=== PATIENT | male | born 1955 | race Caucasian/White ===

== ENCOUNTER 2018-03-06 12:54 | Emergency (ER) | payer MEDICARE, MEDICAID ==
[2018-03-06 12:54] VITALS: BMI 30.7
[2018-03-06 13:01] VITALS: BP 131/84; PULSE 75; RESP 19; TEMP 98.7; O2SAT 95
[2018-03-06 14:16] LABS: HEMOGLOBIN 14.7 g/dL (12.0-18.0); MEAN CORPUSCULAR HEMOGLOBIN 31.5 pg (27.0-31.0); MEAN CORPUSCULAR HGB CONC 35.4 g/dL (33.0-37.0); MEAN PLATELET VOLUME 7.8 fL (7.2-11.7); RBC 4.68 Mil/uL (4.40-5.90); RED CELL DISTRIBUTION WIDTH 13.1 % (11.5-14.5); WHITE BLOOD COUNT 7.1 K/uL (4.8-10.8)
--- NOTE | 2018-03-06 14:37 | C.PDOC ---
History Of Present Illness 63 y/o male with niddm, not on blood thinners, c/o intermittent right sided nose bleeding for last 2 weeks. pt sts can happen while awake or sleeping and sts take a long time to stop, pt here today because he had bleeding in nose 2 times today. no active bleeding at this time. no trauma to nose. pt reports prior nose bleed, seen in ED in 2013, per old recodrs for similar situation, had cautery done in left nare, no ent f/u.. Denies fever, nausea, vomiting, and any other associated symptoms. Time Seen by Provider: 03/06/18 13:28 Chief Complaint (Nursing): ENT Problem History Per: Patient History/Exam Limitations: None Onset/Duration Of Symptoms: Days Current Symptoms Are (Timing): Still Present Past Medical History Reviewed: Historical Data, Nursing Documentation, Vital Signs Vital Signs: Last Vital Signs Temp 98.7 F 03/06/18 12:57 Pulse 75 03/06/18 12:57 Resp 19 03/06/18 12:57 BP 131/84 03/06/18 12:57 Pulse Ox 95 03/06/18 12:57 - Medical History PMH: Depression, Diabetes, HTN, Hypercholesterolemia, Hyperlipidemia, Seizures, Sleep Apnea (on CPap machine at HS) Denies: Chronic Kidney Disease - [facility] Procedures CAUTERY TO STOP EPISTAX (03/16/13) ENDOSC POLYPECTOMY OF LG INTEST (02/05/14) Family History: States: Unknown Family Hx - Social History Hx Tobacco Use: No Hx Alcohol Use: No Hx Substance Use: No - Immunization History Hx Tetanus Toxoid Vaccination: No Hx Influenza Vaccination: Yes Hx Pneumococcal Vaccination: No Review Of Systems Constitutional: Negative for: Fever, Chills ENT: Positive for: Other (intermittent right sided nose bleeding. ) Gastrointestinal: Negative for: Nausea, Vomiting Physical Exam - Physical Exam Appears: Well, Non-toxic, No Acute Distress Skin: Warm, Dry Head: Atraumatic, Normacephalic Eye(s): bilateral: PERRL Nose: Other (punctate area of bleeding noted on the right nasal septum and swelling. no active bleeding. ) Throat: Normal, No Erythema Neck: Normal ROM, Supple Chest: Symmetrical Cardiovascular: Rhythm Regular, No Murmur Respiratory: Other (no acute respiratory distress.) Back: Normal Inspection, No Vertebral Tenderness, No Paraspinal Tenderness Extremity: Normal ROM (x4) Neurological/Psych: Oriented x3, Normal Speech, Normal Motor, Normal Sensation, Normal Reflexes Gait: Steady ED Course And Treatment - Laboratory Results Result Diagrams: 03/06/18 14:12 O2 Sat by Pulse Oximetry: 95 (RA) Pulse Ox Interpretation: Normal Progress Note: Progress: Blood sent. Patient advised to follow up with ENT. Medical Decision Making Medical Decision Making: pt with intermittent nose bleeds right sdie x 1-=2 weeks,m no actibve bleeding. normal platelets and normal coags, d/c home with outpatient f/u Disposition Counseled Patient/Family Regarding: Diagnosis, Need For Followup - Disposition Referrals: Aries Rodriguez MD [Staff Provider] - Disposition: HOME/ ROUTINE Disposition Time: 16:10 Condition: GOOD Additional Instructions: Por favor, aplique doroteo presin directa y firme en el extremo de la nariz meme 10 minutos si el sangrado comienza nuevamente al inclinar la jazmine hacia adelante para evitar tragar naz. Despus de 10 minutos, compruebe si el sa ngrado se spivey detenido. Si no, intntelo de nuevo por otros 5-10 minutos, y si el sangrado persiste, regrese a la ellyn de emergencias. Roma un seguimiento con el doctor lynsey Manzo de la arnieta. Llame para doroteo jessica. No coja la nariz, no ponga nada en la nariz. Please apply firm direct pressure to end of nose for 10 minutes if bleeding starts again while bending head forward to avoid swallowing blood. After 10 mintues, check if bleeding has stopped. If not, try again for another 5-10 minutes, and if bleeding persists, return to ER. Follow up with Dr Rodriguez- ear nose throat doctor. Call for an apointment. Do not pick nose, do not stick anything up nose. Instructions: Nosebleeds (DC) Forms: [facility] (Maltese), Gen Discharge Inst Maltese - Clinical Impression Clinical Impression: Epistaxis - PA / OWNER / Resident Statement / has reviewed & agrees with the documentation as recorded. - Scribe Statement The provider has reviewed the documentation as recorded by the Scribe (Kitty Rivera) All medical record entries made by the Scribe were at my direction and personally dictated by me. I have reviewed the chart and agree that the record accurately reflects my personal performance of the history, physical exam, medic al decision making, and the department course for this patient. I have also personally directed, reviewed, and agree with the discharge instructions and disposition.
[2018-03-06 15:44] LABS: INR 1.1; PROTHROMBIN TIME 12.2 SECONDS (9.7-12.2)
== END 2018-03-06 16:29 | disposition home or self-care (01) ==
LOC: C.ER 12:54
DX: R04.0 Epistaxis (principal)

== ENCOUNTER 2018-09-05 09:38 | Observation (INO) | payer MEDICARE, MEDICAID ==
[2018-09-05 09:38] VITALS: BMI 30.7
[2018-09-05 11:18] LABS: BASO # 0.1 K/uL (0.0-0.2); BASO % 0.8 % (0.0-2.0); EOS # 0.3 K/uL (0.0-0.7); EOS % 2.7 % (0.0-4.0); HEMOGLOBIN 15.5 g/dL (12.0-18.0); LYMPH # 1.5 K/uL (1.0-4.3); LYMPH % 13.9 % (20.0-40.0); MEAN CELL VOLUME 90.5 fL (80.0-94.0); MEAN CORPUSCULAR HEMOGLOBIN 31.5 pg (27.0-31.0); MEAN CORPUSCULAR HGB CONC 34.8 g/dL (33.0-37.0); MEAN PLATELET VOLUME 8.3 fL (7.2-11.7); MONO % 9.6 % (0.0-10.0); NEUT # 7.9 K/uL (1.8-7.0); RBC 4.93 Mil/uL (4.40-5.90); RED CELL DISTRIBUTION WIDTH 13.2 % (11.5-14.5)
[2018-09-05 11:20] LABS: WHITE BLOOD COUNT 10.9 K/uL (4.8-10.8)
[2018-09-05] MEDS ORDERED: Dexamethasone 4 mg/1 ml IVP STA (11:31)
[2018-09-05] MEDS ORDERED: Clindamycin 450 MG in Sodium Chloride 0.9% 50 ML IVPB STA (11:32)
[2018-09-05 11:35] LABS: ALBUMIN 4.5 g/dL (3.5-5.0); BLOOD UREA NITROGEN 11 mg/dL (9-20); CALCIUM 9.2 mg/dl (8.6-10.4); GFR NON-AFRICAN AMERICAN > 60
[2018-09-05 11:36] LABS: ALB/GLOB RATIO 1.3 (1.0-2.1); ALT/SGPT 26 U/L (21-72); AST/SGOT 38 U/L (17-59)
[2018-09-05] MEDS ORDERED: Iodixanol 320 MG/ML 100 ML BOTTLE IV ONE (12:14)
--- NOTE | 2018-09-05 13:39 | CT ---
Date of service: 09/05/2018 PROCEDURE: CT NECK WITH CONTRAST HISTORY: chin infection, swelling of neck and submandibular COMPARISON: None available. TECHNIQUE: CT of the neck with intravenous contrast. Coronal and sagittal reformats generated. Intravenous contrast dose: 100 mL Visipaque 320 Radiation dose: Total exam DLP = 470.45 mGy-cm. This CT exam was performed using one or more of the following dose reduction techniques: Automated exposure control, adjustment of the mA and/or kV according to patient size, and/or use of iterative reconstruction technique. FINDINGS: There is skin thickening, subcutaneous edema and abnormal subcutaneous soft tissue with inflammatory changes overlying the midline and right mandible. There is no evidence for abscess or drainable fluid collection. There is also reactive edema and mild asymmetric enlargement of the right submandibular gland. There is also mild reactive thickening of the right platysma. NASOPHARYNX: Within normal limits. SUPRAHYOID NECK: No mass or abnormal enhancement in the oropharynx, oral cavity, parapharyngeal space and retropharyngeal space. INFRAHYOID NECK: No mass or abnormal enhancement in the larynx, hypopharynx, and supraglottic space. Vocal cords intact. MASS: None. GLANDS: Parotid and left submandibular glands unremarkable. Normal size thyroid gland, without nodule. LYMPH NODES: There is mild asymmetric prominence of the right submandibular lymph nodes, likely reactive. No pathologic cervical chain lymphadenopathy. CERVICAL SPINE: No fracture or focal lesion. Mild multilevel degenerative disc disease. VASCULAR STRUCTURES: There is normal intravascular enhancement. OTHER FINDINGS: There is a retention cyst/polyp in the right maxillary sinus and mild mucosal thickening in the left maxillary sinus. IMPRESSION: 1. Findings are consistent with right facial cellulitis overlying the midline and right mandible. No abscess or drainable fluid collection. 2. Reactive enlargement of the right submandibular gland, reactive thickening of the right platysma and reactive right submandibular lymph node prominence.
--- NOTE | 2018-09-05 14:12 | C.PDOC ---
History Of Present Illness The patient is a 63 year old male who states he had a pimple to his chin, which he tried to pop around 3-4 days ago. Patient presents to the ED for evaluation because the area has now become increasingly swollen over the past couple days. Patient reports swelling to his chin that travels to the both sides of his face and to his submandibular area. Patient also reports some trouble with swallowing. He denies fever, chills, shortness of breath, or known trauma/injury to the area. Time Seen by Provider: 09/05/18 11:10 Chief Complaint (Nursing): Abnormal Skin Integrity History Per: Patient History/Exam Limitations: no limitations Onset/Duration Of Symptoms: Hrs Current Symptoms Are (Timing): Still Present Quality Of Symptoms: Swollen Past Medical History Reviewed: Historical Data, Nursing Documentation, Vital Signs Vital Signs: Last Vital Signs Temp 98.4 F 09/05/18 09:46 Pulse 85 09/05/18 09:46 Resp 18 09/05/18 09:46 BP 132/79 09/05/18 09:46 Pulse Ox 97 09/05/18 09:46 - Medical History PMH: Depression, Diabetes, HTN, Hypercholesterolemia, Hyperlipidemia, Seizures, Sleep Apnea (on CPap machine at HS) Denies: Chronic Kidney Disease Surgical History: No Surg Hx - [facility] Procedures CAUTERY TO STOP EPISTAX (03/16/13) ENDOSC POLYPECTOMY OF LG INTEST (02/05/14) Family History: States: Unknown Family Hx - Social History Hx Tobacco Use: No Hx Alcohol Use: Yes Hx Substance Use: No - Immunization History Hx Tetanus Toxoid Vaccination: No Hx Influenza Vaccination: No Hx Pneumococcal Vaccination: No Review Of Systems Constitutional: Negative for: Fever, Chills Respiratory: Negative for: Shortness of Breath Skin: Positive for: Other (swelling to chin, both sides of face, and difficulty swallowing ) Physical Exam - Physical Exam Appears: Non-toxic, No Acute Distress Skin: Normal Color, Warm, Dry Head: Swelling (chin, bilateral facial, submanidibular areas ) Eye(s): bilateral: Normal Inspection Oral Mucosa: Moist Throat: Normal, No Erythema, No Exudate, No Drooling, Other (swallowing secretions, hot potato voice noted ) Neck: Supple Chest: Symmetrical, No Deformity, No Tenderness Cardiovascular: Rhythm Regular, No Murmur Respiratory: Normal Breath Sounds, No Rales, No Rhonchi, No Wheezing Extremity: Normal ROM, Capillary Refill (less than 2 seconds ) Neurological/Psych: Oriented x3 ED Course And Treatment - Laboratory Results Result Diagrams: 09/05/18 11:05 09/05/18 11:05 Lab Results: Total Bilirubin 1.9 mg/dL (0.2-1.3) H 09/05/18 11:05 AST 38 U/L (17-59) 09/05/18 11:05 ALT 26 U/L (21-72) 09/05/18 11:05 Alkaline Phosphatase 125 U/L (38-126) 09/05/18 11:05 Total Protein 8.0 g/dL (6.3-8.3) 09/05/18 11:05 Albumin 4.5 g/dL (3.5-5.0) 09/05/18 11:05 Globulin 3.4 gm/dL (2.2-3.9) 09/05/18 11:05 Albumin/Globulin Ratio 1.3 (1.0-2.1) 09/05/18 11:05 O2 Sat by Pulse Oximetry: 97 (on RA) Pulse Ox Interpretation: Normal - CT Scan/US CT Neck Soft Tissue Other Rad Studies (CT/US): Read By Radiologist, Radiology Report Reviewed CT/US Interpretation: This report is currently processing and HAS NOT BEEN OFFICIALLY SIGNED BY THE PHYSICIAN - ESTIMATED TIME OF APPROVAL IS 09/05/2018 15:24. ADDENDUM: This addendum is in regards to additional findings in the thyroid gland. There is an apparent multinodular thyroid gland. Correlation with dedicated thyroid ultrasound on a non emergent is recommended for complete evaluation of the thyroid gland. The final report is tagged to the PA review folder. [ Addendum Report Added by Eli Bhat MD at 09/05/2018 15:19:08 ]. Date of service: 09/05/2018. PROCEDURE: CT NECK WITH CONTRAST. HISTORY: chin infection, swelling of neck and submandibular. COMPARISON: None available. TECHNIQUE: CT of the neck with intravenous contrast. Coronal and sagittal reformats generated. Intravenous contrast dose: 100 mL Visipaque 320. Radiation dose: Total exam DLP = 470.45 mGy-cm. This CT exam was performed using one or more of the following dose reduction techniques: Automated exposure control, adjustment of the mA and/or kV according to patient size, and/or use of iterative reconstruction technique. FINDINGS: There is skin thickening, subcutaneous edema and abnormal subcutaneous soft tissue with inflammatory changes overlying the midline and right mandible. There is no evidence for abscess or drainable fluid collection. There is also reactive edema and mild asymmetric enlargement of the right submandibular gland. There is also mild reactive thickening of the right platysma. NASOPHARYNX: Within normal limits. SUPRAHYOID NECK: No mass or abnormal enhancement in the oropharynx, oral cavity, parapharyngeal space and retropharyngeal space. INFRAHYOID NECK: No mass or abnormal enhancement in the larynx, hypopharynx, and supraglottic space. Vocal cords intact. MASS: None. GLANDS: Parotid and left submandibular glands unremarkable. Normal size thyroid gland, without nodule. LYMPH NODES: There is mild asymmetric prominence of the right submandibular lymph nodes, likely reactive. No pathologic cervical chain lymphadenopathy. CERVICAL SPINE: No fracture or focal lesion. Mild multilevel degenerative disc disease. VASCULAR STRUCTURES: There is normal intravascular enhancement. OTHER FINDINGS: There is a retention cyst/polyp in the right maxillary sinus and mild mucosal thickening in the left maxillary sinus. IMPRESSION: 1. Findings are consistent with right facial cellulitis overlying the midline and right mandible. No abscess or drainable fluid collection. 2. Reactive enlargement of the right submandibular gland, reactive thickening of the right platysma and reactive right submandibular lymph node prominence. Progress Note: Bloodwork ordered and reviewed. CT Neck Soft Tissue ordered and reviewed. Cleocin IVP, Decadron IVP, Toradol IM, and Toradol IVP given. Disposition - Disposition Disposition: HOSPITALIZED Disposition Time: 14:12 Condition: FAIR - Clinical Impression Clinical Impression: Cellulitis, face, Cellulitis, neck, Swallowing difficulty - PA / HEEL SCORER / Resident Statement MD/DO has reviewed & agrees with the documentation as recorded. - Scribe Statement The provider has reviewed the documentation as recorded by the Scribe (Abby Hdez) All medical record entries made by the Scribe were at my direction and personally dictated by me. I have reviewed the chart and agree that the record accurately reflects my personal performance of the history, physical exam, medical decision making, and the department course for this patient. I have also personally directed, reviewed, and agree with the discharge instructions and disposition. Decision To Admit - Pt Status Changed To: Hospital Disposition Of: Observation - . Bed Request Type: Telemetry Admitting Physician: Dane Ken Patient Diagnosis: Cellulitis, face, Cellulitis, neck, Swallowing difficulty
[2018-09-05 15:06] VITALS: RESP 20
[2018-09-05] MEDS ORDERED: Dextrose 50% SYRINGE Inj (50 ml) IV PRN (17:17)
[2018-09-05] MEDS ORDERED: Glucagon Recombinant 1 mg Inj IM PRN (17:17)
[2018-09-05] MEDS: (Novolog) Insulin Aspart, Recombinant 100 u/ml 10 ml vial SC SCH ×2 (18:22→23:00)
[2018-09-05] MEDS ORDERED: Clindamycin 600 MG in Sodium Chloride 0.9% 100 ML IV SCH (20:00)
[2018-09-05] MEDS ORDERED: Clindamycin 300 MG in Sodium Chloride 0.9% 50 ML IVPB SCH (22:00)
--- NOTE | 2018-09-05 22:18 | CP.PCM.CON ---
History of Present Illness - History of Present Illness History of Present Illness: infectious disease consult; HPI; 63 yr old male with pmhx of HTN, Hypercholesterolemia, Hyperlipidemia, Seizures, Sleep Apnea presented to [facility] [place] ED with swelling on the face for 2 days after poped a pimple on his chin. patient also complaining of dysphagia and trouble swallowing. But as per patient's RN patient had his supper. Patient was appropriately cultured and started on IV Cleocin as per PMD. Infectious disease consultation requested PMD for evaluation off right facial / and chin cellulitis. patient denies any fever or chills. CT neck -Findings are consistent with right facial cellulitis overlying the midline and right mandible. No abscess or drainable fluid collection. 2. Reactive enlargement of the right submandibular gland, reactive thickening of the right platysma and reactive right submandibular lymph node prominence. incidental findings noted on CT- multinodular thryroid gland PMH: Depression, Diabetes, HTN, Hypercholesterolemia, Hyperlipidemia, Seizures, Sleep Apnea (on CPap machine at HS) Denies: Chronic Kidney Disease Surgical History: No Surg Hx - [facility] Procedures CAUTERY TO STOP EPISTAX (03/16/13) ENDOSC POLYPECTOMY OF LG INTEST (02/05/14) Family History: States: Unknown Family Hx - Social History Hx Tobacco Use: No Hx Alcohol Use: Yes Hx Substance Use: No - Immunization History Hx Tetanus Toxoid Vaccination: No Hx Influenza Vaccination: No Hx Pneumococcal Vaccination: No. ALLERGY; NKA. Review of Systems - Constitutional Constitutional: absent: Chills, Fever - EENT Eyes: absent: Change in Vision Nose/Mouth/Throat: Dry Mouth, Dysphagia, Facial Pain. absent: Mouth Lesions Additional comments: swallowing secretions,NO DROOLING - Cardiovascular Cardiovascular: absent: Chest Pain, Dyspnea - Respiratory Respiratory: absent: Cough - Gastrointestinal Gastrointestinal: absent: Abdominal Pain, Nausea, Vomiting - Genitourinary Genitourinary: absent: Dysuria - Musculoskeletal Musculoskeletal: Neck Pain - Integumentary Integumentary: Erythema, Rash (swelling to chin, both sides of face, and difficulty swallowing.), Skin Pain Past Patient History - Past Medical History & Family History Past Medical History?: Yes - Past Social History Smoking Status: Never Smoked - CARDIAC Hx Hypercholesterolemia: Yes Hx Hypertension: Yes - PULMONARY Hx Sleep Apnea: Yes (on CPap machine at HS) - NEUROLOGICAL Hx Seizures: Yes - HEENT Hx HEENT Problems: Yes Hx Deafness: Yes (JILL HEARING AIDS) - RENAL Hx Chronic Kidney Disease: No - ENDOCRINE/METABOLIC Hx Endocrine Disorders: Yes Hx Diabetes Mellitus Type 2: Yes - HEMATOLOGICAL/ONCOLOGICAL Hx Blood Disorders: No - INTEGUMENTARY Hx Dermatological Problems: No - MUSCULOSKELETAL/RHEUMATOLOGICAL Hx Musculoskeletal Disorders: No - GASTROINTESTINAL Hx Gastrointestinal Disorders: Yes Other/Comment: H PYLORI - GENITOURINARY/GYNECOLOGICAL Hx Genitourinary Disorders: No - PSYCHIATRIC Hx Depression: Yes Hx Substance Use: No - SURGICAL HISTORY Hx Surgeries: Yes Other/Comment: LEFT KNEE SX, RIGHT ARM SX - ANESTHESIA Hx Anesthesia: Yes Hx Anesthesia Reactions: No Hx Malignant Hyperthermia: No Meds Home Medications: Home Medication List Medication Instructions Recorded Confirmed Type Clindamycin [Cleocin] 300 mg PO Q6 #28 cap 09/06/18 Rx Allergies/Adverse Reactions: Allergies Allergy/AdvReac Type Severity Reaction Status Date / Time No Known Allergies Allergy Verified 09/05/18 09:50 - Medications Medications: Current Medications Acetaminophen (Tylenol 325mg Tab) 650 mg PO Q6 PRN PRN Reason: Pain, moderate (4-7) Dextrose (Dextrose 50% Inj) 0 ml IV STAT PRN; Protocol PRN Reason: Hypoglycemia Protocol Dextrose (Glutose 15) 0 gm PO ONCE PRN; Protocol PRN Reason: Hypoglycemia Protocol Enoxaparin Sodium (Lovenox) 40 mg SC DAILY CARLOS Glimepiride (Amaryl) 4 mg PO DAILY CARLOS Glucagon (Glucagen Diagnostic Kit) 0 mg IM STAT PRN; Protocol PRN Reason: Hypoglycemia Protocol Home Med (Sertraline Hcl [Zoloft]) 20 mg PO DAILY CARLOS Dextrose (Dextrose 5% In Water 1000 Ml) 1,000 mls @ 0 mls/hr IV .Q0M PRN; Protocol PRN Reason: Hypoglycemia Protocol Clindamycin Phosphate 600 mg/ (Sodium Chloride) 104 mls @ 100 mls/hr IV Q8H CARLOS ; Protocol Last Admin: 09/05/18 21:52 Dose: 100 mls/hr Piperacillin Sod/Tazobactam Sod (Zosyn 3.375 Gm Iv Premix) 3.375 gm in 50 mls @ 100 mls/hr IVPB Q8H CARLOS; Protocol Insulin Aspart (Novolog) 0 unit SC ACHS CARLOS; Protocol Last Admin: 09/05/18 18:22 Dose: 6 u Metformin HCl (Glucophage) 500 mg PO BID CARLOS Pantoprazole Sodium (Protonix Ec Tab) 40 mg PO DAILY CARLOS Physical Exam - Constitutional Appears: No Acute Distress - Head Exam Head Exam: NORMAL INSPECTION - Eye Exam Eye Exam: EOMI, PERRL - ENT Exam ENT Exam: Normal Oropharynx Additional comments: B/L FACIAL SWELLING AND ERYTHEMA CHIN / FACE. +VE RT SUBMANDIBULAR LYMPHADENOPATHY. - Neck Exam Neck exam: Positive for: Normal Inspection - Respiratory Exam Respiratory Exam: Clear to Auscultation Bilateral, NORMAL BREATHING PATTERN - Cardiovascular Exam Cardiovascular Exam: REGULAR RHYTHM, +S1, +S2 - GI/Abdominal Exam GI & Abdominal Exam: Normal Bowel Sounds, Soft - Extremities Exam Extremities exam: Positive for: pedal pulses present. Negative for: calf tenderness, pedal edema - Neurological Exam Neurological exam: Alert, CN II-XII Intact, Normal Gait, Oriented x3, Reflexes Normal - Psychiatric Exam Psychiatric exam: Normal Affect - Skin Skin Exam: Normal Color, Warm Results - Vital Signs Recent Vital Signs: Last Vital Signs Temp 98 F 09/05/18 15:45 Pulse 72 09/05/18 15:45 Resp 20 09/05/18 15:45 BP 106/61 09/05/18 15:45 Pulse Ox 97 09/05/18 18:46 - Labs Result Diagrams: 09/05/18 11:05 09/05/18 11:05 Labs: Laboratory Results - last 24 hr 09/05/18 09/05/18 11:05 11:05 WBC 10.9 H D RBC 4.93 Hgb 15.5 Hct 44.6 MCV 90.5 MCH 31.5 H MCHC 34.8 RDW 13.2 Plt Count 200 MPV 8.3 Neut % (Auto) 73.0 Lymph % (Auto) 13.9 L Dodge % (Auto) 9.6 Eos % (Auto) 2.7 Baso % (Auto) 0.8 Neut # (Auto) 7.9 H Lymph # (Auto) 1.5 Dodge # (Auto) 1.0 H Eos # (Auto) 0.3 Baso # (Auto) 0.1 Sodium 133 Potassium 3.8 Chloride 98 Carbon Dioxide 27 Anion Gap 13 BUN 11 Creatinine 1.0 Est GFR ( Amer) > 60 Est GFR (Non-Af Amer) > 60 Random Glucose 237 H Calcium 9.2 Total Bilirubin 1.9 H AST 38 ALT 26 Alkaline Phosphatase 125 Total Protein 8.0 Albumin 4.5 Globulin 3.4 Albumin/Globulin Ratio 1.3 Assessment & Plan (1) Cellulitis, face Assessment and Plan: PANCULTURE WOUND CULTURE. MRSA SCREEN. START IV ZOSYN 3.375 GM IVPB Q 8HRLY 09/05/18 COMTINUE IV CLEOCIN 600MG IVPB Q 8HRLY 09/05/18. F/U CULTURES TO ADJUST ABX . Status: Acute (2) Cellulitis, neck Status: Acute (3) Diabetes Status: Acute (4) Swallowing difficulty Assessment and Plan: PT ABLE TO EAT/ AND SWALLOW HIS SECRETIONS. OBSERVE CLOSELY FOR FURTHER DETERIORATION. CASE DISCUSSED WITH THE STAFF Status: Acute
[2018-09-05] MEDS: Piperacill/Tazo 3.375gm in Dex 3.375 GM/50 ML BAG IVPB SCH (22:57)
--- NOTE | 2018-09-06 05:09 | HP ---
CHIEF COMPLAINT: Pain in the chin x2 days. HISTORY OF PRESENT ILLNESS: This is a 63-year-old male who has previously had past medical history. He developed a pimple on his chin and he pinched it and when he squeezed it he developed painful redness, swelling, and tenderness of the chin. The patient denies any fever, chills, or rigors. He denies any history of cough, sore throat, runny nose. He denies any history of nausea, vomiting, diarrhea. He denies any history of hematuria, pyuria. He denies any history of sneezing, itchy eyes, itchy nose. He denies any history of trauma to the chin. He denies diabetes. He denies any . PAST MEDICAL HISTORY: Diabetes, depression, hypertension. SOCIAL HISTORY: He is nonsmoker, non-EtOH user. CURRENT MEDICATIONS: Metformin, Zoloft, Amaryl. PHYSICAL EXAMINATION: GENERAL: Elderly male, in no acute distress. HEENT: Atraumatic, normocephalic. Negative pallor. Negative jaundice. Extraocular movements are intact. NECK: Supple. No JVD. No lymph nodes. No thyromegaly. No carotid bruits. CHEST WALL: Bilateral symmetrical expansion. LUNGS: Clear. No rales. No rhonchi. CARDIOVASCULAR SYSTEM: PMI not localized. S1, S2, regular. No heave. No thrill. ABDOMEN: Soft, nontender. Bowel sounds are positive. EXTREMITIES: No clubbing, cyanosis, or edema. CENTRAL NERVOUS SYSTEM: Awake, alert, oriented x3. Cranial nerves II-XII are normal. Power 5/5 x4. Plantars are downgoing. CHIN: On the chin, there is erythema, redness, swelling, and a pimple on the chin. ASSESSMENT: Cellulitis of chin. PLAN: Admit. Detailed orders are written. Seen and examined. Dane Ken MD
[2018-09-06] MEDS: Piperacill/Tazo 3.375gm in Dex 3.375 GM/50 ML BAG IVPB SCH (06:11)
[2018-09-06] MEDS: (Novolog) Insulin Aspart, Recombinant 100 u/ml 10 ml vial SC SCH ×2 (07:49→12:29)
[2018-09-06 09:11] VITALS: BP 113/69; TEMP 98; O2SAT 94
[2018-09-06] MEDS ORDERED: Enoxaparin 40 mg Syringe SC SCH (10:00)
[2018-09-06] MEDS ORDERED: Pantoprazole 40 mg EC Tab PO SCH (10:00)
[2018-09-06] MEDS ORDERED: SERTRALINE HCL 20 MG PO SCH (10:00)
--- NOTE | 2018-09-06 11:49 | US ---
Date of service: 09/05/2018 HISTORY: abnormal CT TECHNIQUE: Sonographic evaluation of the thyroid gland. COMPARISON: Comparison is made to the previous CT of the neck soft tissue dated 09/05/2018 FINDINGS: RIGHT LOBE: Measures 4.8 x 1.8 x 1.8 cm. Heterogeneous echotexture of the thyroid is noted. Nodules: There is heterogeneous solid nodule at mid to upper pole measures 1.4 x 0.7 x 1 centimeter. There is heterogeneous hypoechoic nodule at the midpole measures 0.8 x 0.6 x 0.8 centimeter. There is also hypoechoic nodule at the lower pole measures 0.5 x 0.3 x 0.5 centimeter. LEFT LOBE: Measures 4.2 x 1.6 x 1.5 cm. Heterogeneous echotexture of left thyroid lobe is also noted. Nodules: There is hypoechoic nodule at the midpole measures 0.7 x 0.6 x 0.8 centimeter. There is also complex solid nodule at the mid to lower pole measures 0.4 x 0.4 x 0.6 centimeter. ISTHMUS: Measures 0.2 cm. Normal echotexture and flow. Nodules: None OTHER FINDINGS: None . IMPRESSION: Heterogeneous thyroid gland contains multiple nodules. The largest nodule is seen at the mid to upper pole of the right thyroid lobe measures 1.4 centimeter. Findings likely represent multinodular goiter. Close follow-up reassessment is recommended. If indicated ultrasound FNA of the largest nodule in the right thyroid lobe may be obtained.
[2018-09-06 11:50] VITALS: PULSE 81
--- NOTE | 2018-09-06 15:13 | CP.PCM.PN ---
Subjective - Date & Time of Evaluation Date of Evaluation: 09/06/18 Time of Evaluation: 13:00 - Subjective Subjective: patient seen today states swelling improved and swallowing improved a febrile labs and vss - reviewed Objective - Vital Signs/Intake and Output Vital Signs (last 24 hours): Temp Pulse Resp BP Pulse Ox 98.0 F 81 20 113/69 94 L 09/06/18 09:09 09/06/18 11:50 09/06/18 09:09 09/06/18 09:09 09/06/18 09:09 - Labs Labs: 09/05/18 11:05 09/05/18 11:05 Assessment and Plan - Assessment and Plan (Free Text) Assessment: A/P 63 yr old male with pmhx of HTN, Hypercholesterolemia, Hyperlipidemia, Seizures, Sleep Apnea presented to [facility] ED with swelling on the face for 2 days after poped a pimple on his chin CT neck -Findings are consistent with right facial cellulitis overlying the midline and right mandible. No abscess or drainable fluid collection. 2. Reactive enlargement of the right submandibular gland, reactive thickening of the right platysma and reactive right submandibular lymph node prominence. incidental findings noted on CT- multinodular thryroid gland US thyroid done - Heterogeneous thyroid gland contains multiple nodules. The largest nodule is seen at the mid to upper pole of the right thyroid lobe measures 1.4 centimeter. Findings likely represent multinodular goiter. started on antibiotics and swelling improved a febrile since admission D/w , cleared for discharge home today and continue clindamycin x 7 more days and f/u wiht his office in 1 week discharge plan discussed with patient , who understands and agrees with plan Discussed with patient US report ( nodule) and needs to f/u with Dr. Ken for further work up outpatient RX given upon discharge
--- NOTE | 2018-09-08 00:35 | DS ---
DISCHARGE DIAGNOSES: Cellulitis of chin. HISTORY OF PRESENT ILLNESS: This is a 63-year-old male with history of a boil on the chin. The patient was given IV clindamycin and to observe the patient to avoid . The patient was kept overnight in the hospital, he did well. He is being discharged on p.o. clindamycin. He also had multinodular goiter. We clearly gave him instruction to come back and follow up with me for his multinodular goiter and for possible referral to clinical rehab liaison, he agreed. Condition upon discharge is stable. He will be followed by as an outpatient. Dane Ken MD
--- NOTE | 2018-09-08 01:43 | CP.PCM.DIS ---
Provider - Provider Date of Admission: 09/05/18 14:07 Attending physician: Dane Kne MD Consults: 09/05/18 19:57 Infectious Disease Consult Routine Comment: Consulting Provider: Nolvia Clancy Consulting Physician: Nolvia Clancy Reason for Consult: sepsis Time Spent in preparation of Discharge (in minutes): 30 Hospital Course - Lab Results Lab Results: Micro Results 09/05/18 22:52 Naris MRSA Culture (Admit) - Final MRSA NOT DETECTED 09/05/18 10:30 Blood Blood Culture - Preliminary NO GROWTH AFTER 48 HOURS 09/05/18 10:00 Blood Blood Culture - Preliminary NO GROWTH AFTER 48 HOURS 09/05/18 22:49 Chin Gram Stain - Final Most Recent Lab Values WBC 10.9 K/uL (4.8-10.8) H D 09/05/18 11:05 RBC 4.93 Mil/uL (4.40-5.90) 09/05/18 11:05 Hgb 15.5 g/dL (12.0-18.0) 09/05/18 11:05 Hct 44.6 % (35.0-51.0) 09/05/18 11:05 MCV 90.5 fL (80.0-94.0) 09/05/18 11:05 MCH 31.5 pg (27.0-31.0) H 09/05/18 11:05 MCHC 34.8 g/dL (33.0-37.0) 09/05/18 11:05 RDW 13.2 % (11.5-14.5) 09/05/18 11:05 Plt Count 200 K/uL (130-400) 09/05/18 11:05 MPV 8.3 fL (7.2-11.7) 09/05/18 11:05 Neut % (Auto) 73.0 % (50.0-75.0) 09/05/18 11:05 Lymph % (Auto) 13.9 % (20.0-40.0) L 09/05/18 11:05 [place] % (Auto) 9.6 % (0.0-10.0) 09/05/18 11:05 Eos % (Auto) 2.7 % (0.0-4.0) 09/05/18 11:05 Baso % (Auto) 0.8 % (0.0-2.0) 09/05/18 11:05 Neut # (Auto) 7.9 K/uL (1.8-7.0) H 09/05/18 11:05 Lymph # (Auto) 1.5 K/uL (1.0-4.3) 09/05/18 11:05 [place] # (Auto) 1.0 K/uL (0.0-0.8) H 09/05/18 11:05 Eos # (Auto) 0.3 K/uL (0.0-0.7) 09/05/18 11:05 Baso # (Auto) 0.1 K/uL (0.0-0.2) 09/05/18 11:05 Sodium 133 mmol/L (132-148) 09/05/18 11:05 Potassium 3.8 mmol/L (3.6-5.2) 09/05/18 11:05 Chloride 98 mmol/L (98-107) 09/05/18 11:05 Carbon Dioxide 27 mmol/L (22-30) 09/05/18 11:05 Anion Gap 13 (10-20) 09/05/18 11:05 BUN 11 mg/dL (9-20) 09/05/18 11:05 Creatinine 1.0 mg/dL (0.8-1.5) 09/05/18 11:05 Est GFR ( Amer) > 60 09/05/18 11:05 Est GFR (Non-Af Amer) > 60 09/05/18 11:05 POC Glucose (mg/dL) 248 mg/dL (65-110) H 09/06/18 11:42 Random Glucose 237 mg/dL (75-110) H 09/05/18 11:05 Lactic Acid 1.9 mmol/L (0.7-2.1) 09/06/18 03:18 Calcium 9.2 mg/dl (8.6-10.4) 09/05/18 11:05 Total Bilirubin 1.9 mg/dL (0.2-1.3) H 09/05/18 11:05 AST 38 U/L (17-59) 09/05/18 11:05 ALT 26 U/L (21-72) 09/05/18 11:05 Alkaline Phosphatase 125 U/L (38-126) 09/05/18 11:05 Total Protein 8.0 g/dL (6.3-8.3) 09/05/18 11:05 Albumin 4.5 g/dL (3.5-5.0) 09/05/18 11:05 Globulin 3.4 gm/dL (2.2-3.9) 09/05/18 11:05 Albumin/Globulin Ratio 1.3 (1.0-2.1) 09/05/18 11:05 Discharge Exam - Head Exam Head Exam: NORMAL INSPECTION Discharge Plan - Discharge Medications Prescriptions: Clindamycin [Cleocin] 300 mg PO Q6 #28 cap - Follow Up Plan Condition: FAIR Disposition: HOME/ ROUTINE Instructions: Clindamycin (Systemic), Cellulitis (Skin Infection), Adult (DC) Additional Instructions: Please f/u with Dr. Ken office in 1 week (f/u visit - also for further work up for (thyroid US report - nodule) Please continue antibiotics for 7 more days Please resume all other medication Please resume metformin Saturday ( you received contrast) Por favor, pngase en contacto con la oficina del Dr. Ken en 1 semana (visita de f / u, leena para continuar trabajando para) (thyroid US report - nodule) Por favor contine con los antibiticos por 7 martinez ms Por favor, reanude todos los otros medicamentos Por favor, reanude metformin el (recibi contraste) Referrals: Dane Ken MD [Staff Provider] -
== END 2018-09-06 14:41 | disposition home or self-care (01) ==
LOC: C.ER 09:38 → C.6T 14:07
PROVIDERS: ADMIT Internal Medicine; ATTEND Internal Medicine
DX: L03.211 Cellulitis of face (principal); L03.221 Cellulitis of neck; R13.10 Dysphagia, unspecified; F32.9 Major depressive disorder, single episode, unspecified; L02.02 Furuncle of face; R56.9 Unspecified convulsions; E04.2 Nontoxic multinodular goiter; E11.9 Type 2 diabetes mellitus without complications; E78.00 Pure hypercholesterolemia, unspecified; E78.5 Hyperlipidemia, unspecified; G47.30 Sleep apnea, unspecified; H91.90 Unspecified hearing loss, unspecified ear; I10 Essential (primary) hypertension
CPT/HCPCS: 36415; 70491; 76536; 80053; 82948; 83605; 85025; 87040; 87070; 87081; 96365; 96366; 96367; 96372; 96375; 99284; G0378; J1100; J1650; J1885; J2543; J7050; Q9967

== ENCOUNTER → 2018-09-29 | Day surgery (SDC) | payer MEDICARE, MEDICAID ==
--- NOTE | 2018-09-29 11:28 | PCM.SURG1 ---
Surgeon's Initial Post Op Note - Surgeon's Notes Surgeon: Tyrel Chávez MD Final Inspection Supervisor: NONE Type of Anesthesia: Local Pre-Operative Diagnosis: Thyroid nodule Operative Findings: 1.5 cm right thyroid nodule Post-Operative Diagnosis: Thyroid nodule Operation Performed: US Guided FNA Specimen/Specimens Removed: 25 g FNA x 5 Estimated Blood Loss: EBL {In ML}: 1 Blood Products Given: N/A Drains Used: No Drains Post-Op Condition: Good Date of Surgery/Procedure: 09/29/18 Time of Surgery/Procedure: 11:25
--- NOTE | 2018-09-29 11:29 | CP.SDSHP ---
Same Day Surgery H & P - History Proposed Procedure: US guided FNA of thyroid nodule Pre-Op Diagnosis: Thyroid nodule - Allergies Allergies: Allergies No Known Allergies Allergy (Verified 09/05/18 09:50) - Physical Exam Mental Status: Alert & Oriented x3 - Impression Impression: Pt with a 1.5 cm right thyroid nodule. Plan US guided FNA. Pt. Evaluated Today:Candidate for Anesthesia & Procedure: No - Date & Time Date: 09/29/18 Time: 11:25 Short Stay Discharge - Short Stay Discharge Admitting Diagnosis/Reason for Visit: THYROID BIOPSY Disposition: HOME/ ROUTINE
[2018-09-29 12:34] VITALS: BMI 31.9
--- NOTE | 2018-09-29 13:37 | US ---
PROCEDURE: Date of Procedure: 09/29/2018 PROCEDURE: 1. Ultrasound guided FNA of right thyroid nodule, CPT 52114 2. Ultrasound guidance for FNA, 43062 Medications: 3cc 1% Lidocaine HISTORY: Enlarged right thyroid nodule. TECHNIQUE: Following informed consent and procedure time-out, a limited ultrasound patient's neck confirmed the presence of a 1.5 Cm complex right thyroid nodule which is predominantly solid. After the patient's neck was prepped and draped in the usual sterile fashion, the skin was anesthetized with 1% lidocaine. Ultrasound-guided fine needle aspiration was then performed of the dominant right thyroid nodule. A total of 5 passes were made into the nodule with 25 gauge needle under ultrasound guidance. The FNA specimen was sent for routine pathology and genetics . Post biopsy ultrasound showed no hematoma. IMPRESSION: Ultrasound-guided FNA of the dominant right thyroid nodule.
== END | disposition home or self-care (01) ==
LOC: C.SPRAD 09:12
PROVIDERS: ATTEND Radiology Vascular & Interventional Radiology
DX: E04.1 Nontoxic single thyroid nodule (principal)

== ENCOUNTER 2018-10-28 15:07 | Outpatient (CLI) | payer MEDICARE, MEDICAID | END 2018-10-28 15:08 | disposition home or self-care (01) | LOC: C.USIC 15:08 | DX: R31.0 Gross hematuria (principal) ==